=== PATIENT | male | born 1940 | race Caucasian/White ===

== ENCOUNTER → 2017-07-21 | Outpatient (CLI) | payer MEDICARE ==
[~2017-07-21] MED LIST: AMOX-291 PO; CHOL500015 PO; CLON-364 PO; CYAN25003 PO; DIGE1TAB PO; L. A1CAP8 PO; MAGNESIUM PO; MELA1TAB PO; MULT1TAB13 PO; PANT40TA5 PO; SERT100T5 PO; SIMV40TA3 PO; TAMS0.4C2 PO; UBIQ100C3 PO; ZOLP10TA5 PO
== END | disposition home or self-care (01) ==
LOC: STAR 10:04
DX: Z01.818 Encounter for other preprocedural examination (principal); K22.710 Barrett's esophagus with low grade dysplasia; F41.9 Anxiety disorder, unspecified; E78.5 Hyperlipidemia, unspecified
CPT/HCPCS: 93005

== ENCOUNTER 2017-08-05 10:16 | Day surgery (SDC) | payer MEDICARE ==
[~2017-08-05] VITALS: Ht 175.3 cm; Wt 70.9 kg
[2017-08-05] MEDS ORDERED: LACTATED RINGERS 1,000 ML IV SCH (10:59)
[2017-08-05] MEDS ORDERED: FENTANYL PF 100 MCG/2ML ONE ×2 (12:20)
[2017-08-05] MEDS ORDERED: ACETYLCYSTEINE 20%, 4ML ONE (12:33)
[2017-08-05] MEDS ORDERED: SUCCINYLCHOLINE 20 MG/ML, 10ML ONE (12:48)
[2017-08-05] MEDS ORDERED: GLYCOPYRROLATE 0.2MG/1ML ONE (12:48)
[2017-08-05] MEDS ORDERED: PROPOFOL 10 MG/ML, 20ML ONE (12:48)
[2017-08-05] MEDS ORDERED: ROCURONIUM 10 MG/ML ONE (12:48)
[2017-08-05] MEDS ORDERED: ACETAMINOPHEN 325 MG TABLET PO PRN (13:30)
[2017-08-05] MEDS ORDERED: HYDROmorphone 1 MG/ML, 1ML IV PRN (13:30)
[2017-08-05] MEDS ORDERED: HYDROcodone/APAP 7.5-325MG/15ML UDC PO PRN (13:30)
[2017-08-05] MEDS ORDERED: OXYcodone 5 MG/5 ML ORAL.SOL UDC PO PRN (13:30)
[2017-08-05] MEDS ORDERED: FENTANYL PF 100 MCG/2ML IV PRN (13:30)
[2017-08-05] MEDS ORDERED: ONDANSETRON 2MG/ML, 2ML IVPush PRN (13:30)
[2017-08-05] MEDS ORDERED: OXYcodone 5 MG/5 ML ORAL.SOL UDC ONE (13:40)
[2017-08-05] MEDS ORDERED: ACETAMINOPHEN 650 MG/20.3 ML UDC ONE (13:40)
[2017-08-05] MEDS ORDERED: SUCRALFATE 1 GM/10 ML UDC PO ONE (16:30)
== END 2017-08-05 18:10 ==
LOC: OUT 10:16
DX: K22.710 Barrett's esophagus with low grade dysplasia (principal); I10 Essential (primary) hypertension
CPT/HCPCS: 43270; J0330; J2704; J3010; J7120; J3490; J7608

== ENCOUNTER 2017-09-23 10:10 | Day surgery (SDC) | payer MEDICARE ==
[2017-09-02 08:45] VITALS: BP 171/89
[~2017-09-23] VITALS: Ht 172.7 cm; Wt 72.4 kg
[2017-09-23] MEDS ORDERED: LACTATED RINGERS 1,000 ML IV SCH (10:44)
[2017-09-23] MEDS ORDERED: LIDOCAINE 1%, 2ML SQ PRN (11:00)
[2017-09-23] MEDS ORDERED: PROPOFOL 10 MG/ML, 20ML ONE (12:49)
== END 2017-09-23 15:10 ==
LOC: OUT 10:10
DX: K22.70 Barrett's esophagus without dysplasia (principal)
CPT/HCPCS: 43239; 43270; 88305; J2704

== ENCOUNTER 2017-12-28 10:17 | Day surgery (SDC) | payer MEDICARE ==
[~2017-12-28] VITALS: Ht 175.3 cm; Wt 72.7 kg
[2017-12-28] MEDS ORDERED: LACTATED RINGERS 1,000 ML IV SCH (11:03)
[2017-12-28 11:06] VITALS: BP 157/76
[2017-12-28] MEDS ORDERED: LIDOCAINE 1%, 2ML SQ PRN (11:30)
[2017-12-28] MEDS ORDERED: PROPOFOL 10 MG/ML, 20ML ONE (12:45)
[2017-12-28] MEDS ORDERED: ONDANSETRON 2MG/ML, 2ML IVPush PRN (13:30)
[2017-12-28] MEDS ORDERED: OXYcodone 5 MG/5 ML ORAL.SOL UDC PO PRN (13:30)
[2017-12-28] MEDS ORDERED: MIDAZOLAM 1 MG/ML, 2ML IV PRN (13:30)
[2017-12-28] MEDS ORDERED: MEPERIDINE/PF 25MG/0.5ML IVPush PRN (13:30)
[2017-12-28] MEDS ORDERED: PROMETHAZINE 25 MG/ML, 1ML IV PRN (13:30)
[2017-12-28] MEDS ORDERED: HYDROmorphone 1 MG/ML, 1ML IV PRN (13:30)
[2017-12-28] MEDS ORDERED: FENTANYL PF 100 MCG/2ML IV PRN (13:30)
[2017-12-28] MEDS ORDERED: PROMETHAZINE 12.5 MG SUPP PR PRN (13:30)
[2017-12-28] MEDS ORDERED: hydrALAzine 20 MG/ML, 1ML IV PRN (13:30)
[2017-12-28] MEDS ORDERED: LABETALOL 5MG/ML, 20ML IV PRN (13:30)
[2017-12-28] MEDS ORDERED: ALBUTEROL SULFATE 2.5 MG/3 ML NPPB PRN (13:30)
== END 2017-12-28 15:15 ==
LOC: OUT 10:17
DX: K22.70 Barrett's esophagus without dysplasia (principal); E78.5 Hyperlipidemia, unspecified; N40.0 Benign prostatic hyperplasia without lower urinary tract symptoms; Z86.010 Personal history of colon polyps
CPT/HCPCS: 43239; 43270; 88305; 93005; J2704; J7120